=== PATIENT | female | born 2005 | race African-American/Black ===

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

== ENCOUNTER 2024-03-25 10:54 | Emergency (ER) | payer OTHER ==
[2024-03-25 11:00] VITALS: BP 117/82; PULSE 66; RESP 18; TEMP 97.7; BMI 27.4
[2024-03-25 13:29] LABS: HIV INTERPRETATION NEGATIVE (NEGATIVE)
== END 2024-03-25 12:06 | disposition home or self-care (01) ==
LOC: JERFT 10:54
DX: N89.8 Other specified noninflammatory disorders of vagina (principal)
CPT/HCPCS: 36415; 84703; 86803; 87070; 87077; 87205; 87389; 87491; 87591; 87661; 99283-25